=== PATIENT | female | born 1965 ===

== ENCOUNTER 2021-01-21 11:40 | Observation (INO) ==
[~2021-01-21 11:40] MED LIST: Buffered Lidocaine 1% SYRIN 1 ml INTRADERM ONE; Lactated Ringers 1000 ml BAG 1,000 ML IV SCH
[2021-01-21] MEDS ORDERED: Buffered Lidocaine 1% SYRIN 1 ml INTRADERM ONE (11:56)
[2021-01-21] MEDS ORDERED: ceFAZolin 2 GM PREMIX 2 GM/50 ML BAG ONE (11:56)
[2021-01-21] MEDS ORDERED: Midazolam 2 mg/2 ml VIAL 1 mg/ml 2 ml VIAL (2 mg) ONE (13:19)
[2021-01-21] MEDS ORDERED: Rocuronium 50 mg VIAL 10 mg/ml 5 ml VIAL (50 mg) ONE (13:19)
[2021-01-21] MEDS ORDERED: fentaNYL 250 mcg/5 ml 50 MCG/ML 5 ml VIAL (250 MCG) ONE (13:19)
[2021-01-21] MEDS ORDERED: Lidocaine 2% PF 5 ML VIAL ONE (13:21)
[2021-01-21] MEDS ORDERED: Propofol 10 MG/ML 20 ML BTL ONE (13:23)
[2021-01-21] MEDS ORDERED: Bupivacaine 0.25% EPI 200,000 30 ML SDV ONE (13:32)
[2021-01-21] MEDS ORDERED: Bacitracin INJECTION (manuf dc) 50,000 UNITS ONE (13:33)
[2021-01-21] MEDS ORDERED: diPHENhydraMINE IV 50 MG/ML 1 ml VIAL (BENADRYL) ONE ×2 (15:03→18:53)
[2021-01-21] MEDS ORDERED: fentaNYL 100 mcg/2 ml 50 MCG/ML VIAL ONE ×2 (15:03→20:57)
[2021-01-21] MEDS ORDERED: DiMENhydriNATE IV 50 mg/ml 1 ml VIAL IV PUSH PRN ×2 (18:17→19:29)
[2021-01-21] MEDS ORDERED: Naloxone 0.4 mg VIAL 0.4 mg/ml 1 ml VIAL IV PRN ×2 (18:17→19:29)
[2021-01-21] MEDS ORDERED: diPHENhydraMINE IV 50 MG/ML 1 ml VIAL (BENADRYL) IV PRN (18:17)
[2021-01-21] MEDS ORDERED: HYDROmorphone 1 MG/1 ML SYRINGE ONE (18:53)
[2021-01-21] MEDS ORDERED: fentaNYL 100 mcg/2 ml 50 MCG/ML VIAL IV PRN (19:29)
[2021-01-21] MEDS ORDERED: Acetaminophen IV 1 GM/100ML 100 ML IV ONE ×2 (19:29→20:44)
[2021-01-21] MEDS ORDERED: Ondansetron 4 mg VIAL 2 MG/ML 2 ml VIAL IV PRN ×2 (19:29→20:42)
[2021-01-21] MEDS ORDERED: Levalbuterol 0.63MG/3ML NEB UNIT OF USE INH PRN (19:29)
[2021-01-21] MEDS ORDERED: Phenylephrine 40 mcg/mL 10mL (400mcg) SYRINGE ONE (19:59)
[2021-01-21] MEDS ORDERED: Ondansetron 4 mg VIAL 2 MG/ML 2 ml VIAL ONE (20:03)
[2021-01-21] MEDS ORDERED: Dexamethasone IV 4 MG/ML VIAL 1 ml VIAL ONE (20:03)
[2021-01-21] MEDS: fentaNYL 100 mcg/2 ml 50 MCG/ML VIAL IV PRN ×2 (20:57→21:02)
[2021-01-22 07:46] VITALS: BP 117/80
[2021-01-22] MEDS ORDERED: Venlafaxine XR 75 mg PO SCH (09:00)
== END 2021-01-22 11:15 | disposition home or self-care (01) ==
LOC: SSU 11:40 → OR 11:40
PROVIDERS: ADMIT Neurological Surgery; ATTEND Neurological Surgery